=== PATIENT | male | born 1965 | race Caucasian/White ===

== ENCOUNTER 2023-12-26 08:36 | Inpatient (IN) | payer BC ==
[2023-12-26] MEDS: SODIUM CHLORIDE 0.9% 1000 ML INFUS.BAG IV ONE (09:26)
[2023-12-26 10:00] LABS: HEMATOCRIT 39.3 % (35.4-49); HEMOGLOBIN 12.8 G/dL (11.7-16.9); MCH 30.6 pg (25.7-33.7); MCHC 32.5 g/dl (32.0-35.9); MEAN CELL VOLUME 94.2 fl (80-96); MEAN PLT VOLUME 8.3 fl (7.5-11.1); PLATELET COUNT 209.5 10^3/uL (134-434); RBC 4.17 10^6/uL (4.00-5.60); RDW 14.3 % (11.9-15.9); WHITE BLOOD COUNT 10.7 10^3/uL (4.0-10.8)
[2023-12-26 10:08] LABS: ALBUMIN 3.8 g/dl (3.4-5.0); BILIRUBIN,TOTAL 1.3 mg/dl (0.2-1); CALCIUM 8.7 mg/dl (8.5-10.1); CREATININE 3.3 mg/dl (0.6-1.3); POTASSIUM 4.3 mmol/L (3.5-5.1); TOT PROT 5.9 g/dl (6.4-8.2)
[2023-12-26 10:19] LABS: PLATELET ESTIMATE ADEQUATE
[2023-12-26] MEDS: LACTATED RINGERS SOLUTION 1000 ML INFUS.BAG IV ONE (11:48)
[2023-12-26] MEDS ORDERED: ACETAMINOPHEN 500 MG TABLET (FP) ONE (11:50)
[2023-12-26] MEDS: ACETAMINOPHEN 500 MG TABLET (FP) PO ONE (11:50)
[2023-12-26] MEDS ORDERED: WATER IVPB ONE (16:20)
[2023-12-26] MEDS ORDERED: CEFTRIAXONE IVPB ONE (16:20)
[2023-12-26] MEDS ORDERED: DEXTROSE 5% IVPB ONE (16:20)
[2023-12-26] MEDS: LACTATED RINGERS SOLUTION 1,000 ML/1,000 ML INFUS.BAG IV SCH (16:51)
[2023-12-26 18:31] LABS: CALCIUM 8.2 mg/dL (8.5-10.1)
[2023-12-26 18:32] LABS: ALBUMIN 2.7 g/dl (3.4-5.0); BLOOD UREA NITROGEN 51.9 mg/dL (7-18)
[2023-12-26 18:35] LABS: CREATININE 3.2 mg/dL (0.55-1.3)
[2023-12-26 18:36] LABS: TOT PROT 5.7 g/dl (6.4-8.2)
[2023-12-26] MEDS: CEFTRIAXONE 2 GM in DEXTROSE 5%-WATER 100 ML IVPB ONE (18:56)
[2023-12-26] MEDS ORDERED: DOXYCYCLINE HYCLATE 100 MG VIAL ONE (21:31)
[2023-12-26] MEDS: APIXABAN 5 MG TABLET PO SCH (21:32)
[2023-12-26] MEDS: DOXYCYCLINE INJECTION 100 MG in DEXTROSE 5%-WATER 100 ML IVPB SCH (21:32)
[2023-12-26 23:55] LABS: URINE BARBITURATES NEGATIVE (NEGATIVE)
[2023-12-26 23:56] LABS: METHADONE, UR NEGATIVE (NEGATIVE); OPIATES, URI NEGATIVE (NEGATIVE); PHENCYCLIDINE,URINE NEGATIVE (NEGATIVE); URINE AMPHETAMINES NEGATIVE (NEGATIVE); URINE BENZODIAZEPINES NEGATIVE (NEGATIVE)
[2023-12-26 23:59] LABS: COCAINE, UR NEGATIVE (NEGATIVE)
[2023-12-27] MEDS: ACETAMINOPHEN 1000 MG/100 ML BAG IVPB ONE (05:30)
[2023-12-27 08:06] LABS: BASO % 0.4 % (0-2.0); HEMATOCRIT 33.5 % (35.4-49); HEMOGLOBIN 11.4 GM/dL (11.7-16.9); LYMPH % 7.7 % (8-40); MCH 31.3 pg (25.7-33.7); MEAN CELL VOLUME 92.1 fl (80-96); MEAN PLT VOLUME 8.1 fl (7.5-11.1); NEUT % 81.9 % (42.8-82.8); PLATELET COUNT 206 10^3/uL (134-434); RBC 3.63 M/mm3 (4.00-5.60); RDW 13.9 % (11.9-15.9); WHITE BLOOD COUNT 9.5 K/mm3 (4.0-10.0)
[2023-12-27 08:22] LABS: POTASSIUM 3.9 mmol/L (3.5-5.1)
[2023-12-27 08:31] LABS: ALBUMIN 2.4 g/dl (3.4-5.0); BLOOD UREA NITROGEN 47.9 mg/dL (7-18); MAGNESIUM 2.7 mg/dL (1.8-2.4)
[2023-12-27 08:34] LABS: CREATININE 2.3 mg/dL (0.55-1.3); PHOSPHOROUS 3.6 mg/dL (2.5-4.9)
[2023-12-27 08:39] LABS: TOT PROT 5.5 g/dl (6.4-8.2)
[2023-12-27] MEDS: NYSTATIN 500,000 UNITS/5 ML SUSPENSION PO SCH (12:04)
[2023-12-27 12:50] VITALS: BMI 27.1
[2023-12-27] MEDS: LACTATED RINGERS SOLUTION 1,000 ML/1,000 ML INFUS.BAG IV SCH (12:59)
[2023-12-27 17:43] LABS: EPI CELLS 21 /uL (0-25.1); HYALINE CASTS 7 /uL (0-3.1); URINE APPEARANCE CLOUDY; URINE BACTERIA 2 /uL (0-1359); URINE BILIRUBIN NEGATIVE (NEGATIVE); URINE COLOR YELLOW; URINE GLUCOSE (UA) NEGATIVE (NEGATIVE); URINE KETONE NEGATIVE (NEGATIVE); URINE LEUK ESTERASE NEGATIVE (NEGATIVE); URINE NITRITE NEGATIVE (NEGATIVE); URINE PROTEIN 2+ (NEGATIVE); URINE UROBILINOGEN 0.2 mg/dL (0.2-1.0); URINE WBC 37 /uL (0-25.8)
[2023-12-27 18:12] LABS: URINE RBC NONE SEEN /uL (0-23.9); YEAST NONE SEEN (NEGATIVE)
[2023-12-28 07:14] LABS: HEMATOCRIT 33.2 % (35.4-49); HEMOGLOBIN 11.3 GM/dL (11.7-16.9); MCH 31.2 pg (25.7-33.7); MEAN CELL VOLUME 91.8 fl (80-96); MEAN PLT VOLUME 7.8 fl (7.5-11.1); PLATELET COUNT 232 10^3/uL (134-434); RBC 3.62 M/mm3 (4.00-5.60); WHITE BLOOD COUNT 8.4 K/mm3 (4.0-10.0)
[2023-12-28 07:28] LABS: POTASSIUM 3.7 mmol/L (3.5-5.1)
[2023-12-28 07:30] LABS: CALCIUM 7.6 mg/dL (8.5-10.1)
[2023-12-28 07:31] LABS: ALBUMIN 2.1 g/dl (3.4-5.0); BLOOD UREA NITROGEN 35.8 mg/dL (7-18); MAGNESIUM 2.3 mg/dL (1.8-2.4)
[2023-12-28 07:34] LABS: CREATININE 1.2 mg/dL (0.55-1.3); PHOSPHOROUS 3.1 mg/dL (2.5-4.9)
[2023-12-28 07:36] LABS: BILIRUBIN,TOTAL 0.8 mg/dL (0.2-1); TOT PROT 5.1 g/dl (6.4-8.2)
[2023-12-28] MEDS: LACTATED RINGERS SOLUTION 1,000 ML/1,000 ML INFUS.BAG IV STA (21:23)
[2023-12-29 07:10] LABS: HEMATOCRIT 36.1 % (35.4-49); HEMOGLOBIN 12.1 GM/dL (11.7-16.9); MCH 30.9 pg (25.7-33.7); MCHC 33.5 g/dl (32.0-35.9); MEAN CELL VOLUME 92.4 fl (80-96); MEAN PLT VOLUME 7.5 fl (7.5-11.1); PLATELET COUNT 284 10^3/uL (134-434); RBC 3.91 M/mm3 (4.00-5.60); RDW 14.3 % (11.9-15.9); WHITE BLOOD COUNT 7.6 K/mm3 (4.0-10.0)
[2023-12-29 07:35] LABS: POTASSIUM 3.8 mmol/L (3.5-5.1)
[2023-12-29 07:52] LABS: CALCIUM 7.7 mg/dL (8.5-10.1)
[2023-12-29 07:53] LABS: ALBUMIN 2.1 g/dl (3.4-5.0); BLOOD UREA NITROGEN 21.2 mg/dL (7-18); MAGNESIUM 1.9 mg/dL (1.8-2.4)
[2023-12-29 07:56] LABS: CREATININE 0.8 mg/dL (0.55-1.3); PHOSPHOROUS 2.7 mg/dL (2.5-4.9)
[2023-12-29 07:57] LABS: BILIRUBIN,TOTAL 1.3 mg/dL (0.2-1)
[2023-12-29] MEDS ORDERED: SACUBITRIL/VALSARTAN 97 MG-103 MG TABLET PO SCH (10:00)
[2023-12-29] MEDS: ATORVASTATIN CA 40 MG TABLET (FP) PO SCH (21:52)
[2023-12-30 07:44] LABS: HEMATOCRIT 33.9 % (35.4-49); HEMOGLOBIN 11.4 GM/dL (11.7-16.9); MCH 31.2 pg (25.7-33.7); MCHC 33.6 g/dl (32.0-35.9); MEAN CELL VOLUME 92.8 fl (80-96); MEAN PLT VOLUME 7.3 fl (7.5-11.1); PLATELET COUNT 329 10^3/uL (134-434); POTASSIUM 4.2 mmol/L (3.5-5.1); RBC 3.65 M/mm3 (4.00-5.60); RDW 14.1 % (11.9-15.9); WHITE BLOOD COUNT 6.9 K/mm3 (4.0-10.0)
[2023-12-30 07:47] LABS: CALCIUM 8.3 mg/dL (8.5-10.1)
[2023-12-30 07:48] LABS: ALBUMIN 2.1 g/dl (3.4-5.0); MAGNESIUM 1.8 mg/dL (1.8-2.4)
[2023-12-30 07:51] LABS: CREATININE 0.9 mg/dL (0.55-1.3)
[2023-12-30 07:52] LABS: BILIRUBIN,TOTAL 0.8 mg/dL (0.2-1); TOT PROT 4.9 g/dl (6.4-8.2)
[2023-12-30] MEDS: valACYclovir HCL 500 MG TABLET (FP) PO SCH ×2 (11:37→21:09)
[2023-12-30] MEDS: LACTATED RINGERS SOLUTION 1,000 ML/1,000 ML INFUS.BAG IV SCH (11:38)
[2023-12-30] MEDS ORDERED: [UNRECOGNIZED DRUG - OTHER] PO SCH (18:00)
[2023-12-30] MEDS: MYCOPHENOLATE MOFETIL 500 MG TABLET PO SCH (18:20)
[2023-12-30] MEDS: SACUBITRIL/VALSARTAN 24 MG-26 MG TABLET PO SCH (21:09)
[2023-12-31 08:08] LABS: POTASSIUM 4.2 mmol/L (3.5-5.1)
[2023-12-31 08:18] LABS: CALCIUM 7.9 mg/dL (8.5-10.1)
[2023-12-31 08:19] LABS: ALBUMIN 2.2 g/dl (3.4-5.0); BLOOD UREA NITROGEN 14.5 mg/dL (7-18)
[2023-12-31 08:22] LABS: CREATININE 0.7 mg/dL (0.55-1.3)
[2023-12-31 08:24] LABS: BILIRUBIN,TOTAL 0.8 mg/dL (0.2-1)
[2024-01-01 07:40] LABS: BASO % 0.4 % (0-2.0); EOS % 2.2 % (0-4.5); HEMATOCRIT 35.8 % (35.4-49); HEMOGLOBIN 12.2 GM/dL (11.7-16.9); LYMPH % 27.1 % (8-40); MCH 31.3 pg (25.7-33.7); MEAN CELL VOLUME 91.9 fl (80-96); MEAN PLT VOLUME 6.7 fl (7.5-11.1); MONO % 6.9 % (3.8-10.2); NEUT % 63.4 % (42.8-82.8); PLATELET COUNT 451 10^3/uL (134-434); RDW 13.8 % (11.9-15.9); WHITE BLOOD COUNT 8.2 K/mm3 (4.0-10.0)
[2024-01-01 07:52] LABS: POTASSIUM 4.3 mmol/L (3.5-5.1)
[2024-01-01 07:55] LABS: ALBUMIN 2.3 g/dl (3.4-5.0); CALCIUM 8.2 mg/dL (8.5-10.1); MAGNESIUM 1.6 mg/dL (1.8-2.4)
[2024-01-01 07:58] LABS: CREATININE 0.8 mg/dL (0.55-1.3); PHOSPHOROUS 2.9 mg/dL (2.5-4.9)
[2024-01-01 07:59] LABS: TOT PROT 5.2 g/dl (6.4-8.2)
[2024-01-01 08:00] LABS: BILIRUBIN,TOTAL 0.6 mg/dL (0.2-1)
[2024-01-01] MEDS: MAGNESIUM 2GM/50ML STERILE WATER IVPB IVPB ONE (09:41)
[2024-01-02 08:43] LABS: HEMATOCRIT 36.5 % (35.4-49); HEMOGLOBIN 12.2 GM/dL (11.7-16.9); MCH 31.1 pg (25.7-33.7); MCHC 33.5 g/dl (32.0-35.9); MEAN CELL VOLUME 92.7 fl (80-96); MEAN PLT VOLUME 6.4 fl (7.5-11.1); PLATELET COUNT 495 10^3/uL (134-434); RBC 3.93 M/mm3 (4.00-5.60); RDW 13.8 % (11.9-15.9); WHITE BLOOD COUNT 9.4 K/mm3 (4.0-10.0)
[2024-01-02 08:54] LABS: POTASSIUM 4.5 mmol/L (3.5-5.1)
[2024-01-02 09:08] LABS: ALBUMIN 2.4 g/dl (3.4-5.0)
[2024-01-02 09:09] LABS: BLOOD UREA NITROGEN 13.3 mg/dL (7-18)
[2024-01-02 09:11] LABS: CREATININE 0.8 mg/dL (0.55-1.3)
[2024-01-02 09:12] LABS: CALCIUM 7.9 mg/dL (8.5-10.1)
[2024-01-02 09:15] LABS: PHOSPHOROUS 2.9 mg/dL (2.5-4.9)
[2024-01-02 09:16] LABS: BILIRUBIN,TOTAL 0.6 mg/dL (0.2-1)
[2024-01-02 09:17] LABS: TOT PROT 5.4 g/dl (6.4-8.2)
[2024-01-02 15:26] VITALS: BP 114/78; PULSE 86; RESP 18; TEMP 98.2
== END 2024-01-02 16:48 | disposition home or self-care (01) | DRG 871 ==
LOC: FER 08:36 → FM/S 11:59 → J4W 16:21
PROVIDERS: ADMIT Internal Medicine; ATTEND Internal Medicine
DX: A41.9 Sepsis, unspecified organism (principal); A48.1 Legionnaires' disease; G93.41 Metabolic encephalopathy; J18.9 Pneumonia, unspecified organism; N17.9 Acute kidney failure, unspecified; I24.89 Other forms of acute ischemic heart disease; I42.8 Other cardiomyopathies; M62.82 Rhabdomyolysis; B37.0 Candidal stomatitis; I10 Essential (primary) hypertension; I25.10 Atherosclerotic heart disease of native coronary artery without angina pectoris; E78.5 Hyperlipidemia, unspecified; I48.0 Paroxysmal atrial fibrillation; R79.89 Other specified abnormal findings of blood chemistry; Z95.810 Presence of automatic (implantable) cardiac defibrillator; B00.9 Herpesviral infection, unspecified
CPT/HCPCS: 0241U-QW; 36415; 70450-TC; 71045-TC-FY; 71046-TC-FY; 71250-TC; 74176-TC; 76775-TC; 80053; 80180; 80307; 81003; 82550; 82553; 82570; 83036; 83605; 83735; 84100; 84300; 84484; 84540; 85025; 85027; 86713; 87040; 87899; 93005; 93010; 93308; 99285-25; J0131; J7517